=== PATIENT | male | born 1970 | race Two or more races ===

== ENCOUNTER 2021-02-20 05:56 | Emergency (ER) | payer OTHER ==
[~2021-02-20] VITALS: Ht 167.6 cm; Wt 71.0 kg
[2021-02-20 06:33] LABS: BASOPHILS % 0.3 % (0.0-2.0); HEMOGLOBIN. 12.4 g/dL (14.0-18.0); LYMPHOCYTES % 32.7 % (20.0-50.0); MEAN CORPUSCULAR VOLUME 92.6 fL (80.0-94.0); MEAN PLATELET VOLUME 7.5 fl (7.4-10.4); MONOCYTES % 13.2 % (2.0-8.0); NEUTROPHILS % 53.8 % (40.0-76.0); PLATELET 189 x1000/uL (130-400); RED BLOOD CELL COUNT 3.89 mill/uL (4.7-6.1); RED CELL DISTRIBUTION WIDTH 13.1 % (11.6-14.6)
[2021-02-20 06:42] LABS: CHLORIDE 103 mEq/L (98-107)
[2021-02-20 06:46] LABS: ETHANOL BLOOD 221 mg/dL
[2021-02-20 08:20] VITALS: BP 116/74
== END 2021-02-20 10:04 | disposition left against medical advice (07) ==
LOC: ER 05:56
DX: S09.8XXA Other specified injuries of head, initial encounter (principal); F10.229 Alcohol dependence with intoxication, unspecified; I10 Essential (primary) hypertension; Z91.040 Latex allergy status; Y90.7 Blood alcohol level of 200-239 mg/100 ml; W01.0XXA Fall on same level from slipping, tripping and stumbling without subsequent striking against object, initial encounter; Y93.89 Activity, other specified; Y92.018 Other place in single-family (private) house as the place of occurrence of the external cause
CPT/HCPCS: 36415; 80053; 80320; 85025; 99285; G0480